=== PATIENT | male | born 1955 | race Caucasian/White ===

== ENCOUNTER → 2019-07-23 08:08 | Outpatient (CLI) | payer MEDICARE ==
[~2019-07-23 08:08] MED LIST: AMIODARONE HCL200 MG PO; ASPIRIN EC81 M1 PO; BACLOFEN10 MG PO; CALCIUM 500 +1 EAC3 PO; CARTIA XT240 MG PO; COLACE100 MG PO; LISINOPRIL5 MG PO; LOPRESSOR25 MG PO; METAMUCIL PACKE1 PKT PO; MULTI-DAY VITAM1 TAB PO; PERCOCET 5-3251 TAB PO; Senokot-S Tablet PO; VOLTAREN75 MG PO; XELJANZ5 MG PO; ZOCOR40 MG PO
[2019-08-14 13:59] VITALS: BMI 49.9
== END | disposition home or self-care (01) ==
LOC: D.HCCARDIO 08:08
PROVIDERS: ATTEND Internal Medicine Cardiovascular Disease
DX: R06.02 Shortness of breath (principal)

== ENCOUNTER 2019-08-01 06:03 | Outpatient (CLI) | payer MEDICARE ==
[~2019-08-01] VITALS: Ht 175.3 cm; Wt 154.5 kg
--- NOTE | ~2019-08-01 | HEMODYNAMI ---
PATIENT:AUSTIN ALFONSO MEDICAL RECORD: [id number] : 57 LOCATION:[facility] ADMISSION DATE: 08/01/19 Generatedon:08/01/20198:37 Patient name: AUSTIN ALFONSO Patient #: [id number] SSN: [id number] : 1955 Date of study: 08/01/2019 Page: Of Hemodynamic Procedure Report Patient Data Patient Demographics Procedure consent was obtained First Name: AUSTIN Gender: Male Last Name: NATY : 1955 Patient #: [id number] Age: 63 year(s) Race: SSN: [id number] Additional ID: [id number] Contact details [address]: [address] [place] [address] State: [place] City: [place] Zip code: [address] Past Medical History Performed procedures and imaging results Date Procedure Procedure Results Comments Stress testing with Positive SPECT MPI Allergies: No known allergies Admission Admission Data Admission Date: 08/01/2019 Admission Time: 6:03 Arrival Date: 08/01/2019 Arrival Time: 8:00 Admit Source: Other Insurance Payor: Medicare [facility] #: [id number] Height (in.): 68.9 BSA: 2.59 (m2) Height (cm.): 175 BMI: 50.61 (kg/m2) Weight (lbs.): 341.72 Weight (kg.): 155 Lab Results Lab Result Date: 08/01/2019 Lab Result Time: 0:00 Biochemistry Name Units Result Min Max BUN mg/dl 22 --(----)-* 7 18 Creatinine mg/dl 1 --(--*-)-- 0.6 1.3 eGFR ml/min 79.86321 *-(----)-- 90 120 NONAFRICAN CBC Name Units Result Min Max Hemoglobin g/dl 15.2 --(-*--)-- 13.5 17.5 Procedure Procedure Types Cath Procedure Diagnostic Procedure C LHC w/Coronaries Sedation Charges Moderate Sedation up to 15 minutes Procedure Description Procedure Date Procedure Date: 08/01/2019 Procedure Start Time: 8:22 Procedure End Time: 8:36 Procedure Staff Name Function Brandon Rosenberg MD Performing Physician Belinda Valencia RN Nurse Qiana Guerin RT Monitor Juany Sutherland RT Scrub Procedure Data Cath Procedure Fluoroscopy Diagnostic fluoroscopy Total fluoroscopy Time: 2.1 time: 2.1 min min Diagnostic fluoroscopy Total fluoroscopy dose: dose: 1326 mGy 1326 mGy Contrast Material Contrast Material Type Amount (ml) Isovue 300 90 Entry Location Entry Primary Successful Side Size Upsize Upsize Entry Closure Muñiz ccessful Closure Location (Fr) 1 (Fr) 2 (Fr) Remarks Device Remarks Radial Right 6 Fr Mechanical artery Short Compression Estimated blood loss: 10 ml Diagnostic catheters Device Type Used For End Catheter Placement DIAGNOSTIC Jaydon 110cm Procedure 5Fr catheter ([id number]) Procedure Complications No complications Procedure Medications Medication Administration Route Dosage 0.9% NaCl I.V. 100 ml/hr Oxygen etCO2 Nasal cannula 2 l/min Heparin Flush Bag added to field 2 bags (1000units/500ml NS) Radial Cocktail added to field 1 syringe (Verapamil 2mg/Nitro 400mcg/Heparin 1500units) Zofran I.V. 4 mg Versed I.V. 2 mg Fentanyl I.V. 50 mcg Versed I.V. 1 mg Fentanyl I.V. 50 mcg Hemodynamics Rest BSA: 2.59 (m2) HGB: 15.2 (g/dl) O2 Consumption: Estimated: 301.18 (ml/min) O2 Co nsumption indexed: Estimated:116.29 (ml/min/m) Heart Rate: 68 (bpm) Pressure Samples Time Site Value (mmHg) Purpose Heart Use Rate(bpm) 8:25 LV 148/-4,21 Snapshot 77 8:25 AO 111/70(83) Pullback 74 8:25 LV 128/-5,11 Pullback 74 Gradients Valve Time Site 1 Site 2 Mean SEP/DFP Peak To Heart Use (mmHg) (sec/min) Peak Rate (mmHg) (bpm) Aortic 8:25 LV AO 17 6 17 74 128/-5,11 111/70(83) Calculations Valve P-P Mean Valve Index Valve Source Name Gradient Area Flow (cm2) Aortic 17 17 17 17 Snapshots Pre Cath Intra NCS Post Cath Vital Signs Time Heart Resp SPO2 etCO2 NIBP (mmHg) Rhythm Pain Sedation Rate (ipm) (%) (mmHg) Status Level (bpm) 7:52:34 56 15 98 29.3 148/79(99) SB 0 (11) 10(A) , No pain 7:57:07 67 13 96 29 158/74(103) NSR 0 (11) 10(A) , No pain 8:01:35 72 13 97 28.6 137/74(110) NSR 0 (11) 10(A) , No pain 8:05:59 64 11 96 23.3 139/74(100) NSR 0 (11) 10(A) , No pain 8:10:25 64 12 96 28.6 136/78(115) NSR 0 (11) 10(A) , No pain 8:14:50 64 15 98 24.8 143/83(104) NSR 0 (11) 10(A) , No pain 8:19:10 74 11 98 21.1 138/77(105) NSR 0 (11) 10(A) , No pain 8:23:28 66 10 97 27.1 136/81(115) NSR 0 (11) 10(A) , No pain 8:27:56 73 10 98 38.4 127/69(100) NSR 0 (11) 9(A) , No pain 8:32:12 70 11 98 36.9 131/80(109) NSR 0 (11) 10(A) , No pain Medications Time Medication Route Dose Verified Delivered Reason Notes Eff ectiveness by by 7:52:10 0.9% NaCl I.V. 100 Brandon Belinda used for ml/hr Chet Valencia chief knowledge officer 7:52:17 Oxygen etCO2 2 l/min Brandon Belinda used for Nasal Chet Valencia procedure cannula RN 7:52:32 Heparin Flush added 2 bags Brandon Brandon used for Bag to Chet Rosenberg MD procedure (1000units/500ml field NS) 7:52:37 Radial Cocktail added 1 Brandon Brandon used for (Verapamil to syringe Chet Rosenberg MD procedure 2mg/Nitro field 400mcg/Heparin 1500units) 7:52:47 Zofran I.V. 4 mg Brandon Belinda for Chet Valencia nausea RN 8:16:32 Versed I.V. 2 mg Brandon Belinda for Chet Valencia sedation RN 8:16:37 Fentanyl I.V. 50 mcg Brandon Belinda for Chet Valencia sedation RN 8:23:11 Versed I.V. 1 mg Brandon Belinda for Chet Valencia sedation RN 8:23:15 Fentanyl I.V. 50 mcg Brandon Belinda for Chet Valencia sedation exercise physiologist Log Time Note 7:06:38 Informed consent obtained and on chart 7:10:28 Patient Weight : 341.72 lbs 7:10:34 Arrival Date: 08/01/2019 8:00:00 AM 7:10:41 Insurance Payor : Medicare 7:10:53 Patient Height : 68.9 inches 7:11:03 Diagnostic Cath Status : Elective 7:11:04 PCI Cath Status : Elective 7:12:18 Procedure Status Elective Heart Cath (OP). 7:12:19 Time tracking: Regular hours (M-F 7:00 - 5:00) 7:12:24 Plan of Care:Hemodynamics will remain stable., Cardiac rhythm will remain stable., Comfort level will be maintained., Respiratory function will remain adequate., Patient/ family verbilizes understanding of procedure., Procedure tolerated without complication., Recovers from procedure without complications.. 7:12:35 H&P Date Dictated: 07/09/2019 Within 30 days and on chart., H&P Addendum completed by physician on day of procedure. (MUST COMPLETE FOR ALL OUTPATIENTS). 7:12:42 Patient allergic to No known allergies 7:25:53 Admit Source: Other 7:30:25 Lab Result : Creatinine 1 mg/dl 7:30:25 Lab Result : BUN 22 mg/dl 7:30:25 Lab Result : eGFR NONAFRICAN 79.33634 ml/min 7:30:25 Lab Result : Hemoglobin 15.2 g/dl 7:34:52 Risk of Mortality: 0.1 7:34:57 Risk of blood transfusion: 0.3 7:35:02 Risk of RAMON: 0.4 7:35:20 2) 60-89 Mildly reduced kidney function, and other findings (as for stage 1) point to kidney disease. 7:35:57 Maximum allowable contrast dose (3.7 X eGFR X 0.75)222 ml. 7:47:35 Patient received from Pre/Post Procedure Room to CCL 2 Alert and oriented. Tansferred to table in Supine position. 7:47:37 Warm blankets applied, and judi hugger turned on for patient comfort. 7:47:37 Correct patient and procedure confirmed by team. 7:47:38 ECG and BP/O2 sat monitors applied to patient. 7:47:40 Pre-procedure instructions explained to patient. 7:47:40 Pre-op teaching completed and patient verbalized understanding. 7:47:41 Family in patients room. 7:47:43 Patient NPO since Midnight. 7:47:48 Is the patient allergic to Iodine/contrast media? No. 7:47:53 Is patient on blood thinner?No 7:47:56 Patient diabetic? No. 7:48:05 Full Disclosure recording started 7:48:12 Previous problem with sedation/anesthesia? Yes NAUSEA 7:48:14 Snore? Yes 7:48:15 Sleep apnea? Yes 7:48:16 Deviated septum? No 7:48:17 Opens mouth fully? Yes 7:48:18 Sticks out tongue? Yes 7:48:20 Airway obstruction? No ? 7:48:24 Dentures? No ? 7:48:27 Pre procedure: right dorsailis pedis pulse 1+ Palpable, but thready & weak; easily obliterated 7:49:33 Patient pain scale 0/10 ?. 7:49:36 IV patent on arrival in left hand with 0.9% NaCl at KVO. 7:49:40 Lab results completed and on chart. 7:49:43 Right Radial & Right Groin area was prepped with chlora-prep and draped in sterile fashion 7:49:44 Alarms reviewed by R. N. 7:49:45 Sharps counted by scrub and verified by R.N. 7:49:49 Use device set Radial Dx or PCI 7:49:50 ACIST Syringe (92258) opened to sterile field. 7:49:51 Medline Cath Pack ([id number]) opened to sterile field. 7:49:52 Bag Decanter (2002) opened to sterile field. 7:49:52 ACIST Hand Control (81766) opened to sterile field. 7:49:53 ACIST Manifold (39623) opened to sterile field. 7:49:53 Tegaderm 4 x 4 (1626W) opened to sterile field. 7:49:54 MBrace Wrist Support ([id number]) opened to sterile field. 7:49:55 NEEDLE Cook 21G 4cm Radial (X53378) opened to sterile field. 7:49:57 EMERALD Guide Wire (035-516) opened to sterile field. 7:49:58 SHEATH 6FR RAIN ([id number]) opened to sterile field. 7:51:15 Rhythm: sinus rhythm 7:51:20 Vital chart was started 7:52:10 0.9% NaCl 100 ml/hr I.V. was administered by Belinda Valencia RN; used for procedure; Verbal order read back and verified. 7:52:17 Oxygen 2 l/min etCO2 Nasal cannula was administered by Belinda Valencia RN; used for procedure; Verbal order read back and verified. 7:52:32 Heparin Flush Bag (1000units/500ml NS) 2 bags added to field was administered by Brandon Rosenberg MD; used for procedure; Verbal order read back and verified. 7:52:37 Radial Cocktail (Verapamil 2mg/Nitro 400mcg/Heparin 1500units) 1 syringe added to field was administered by Brandon Rosenberg MD; used for procedure; Verbal order read back and verified. 7:52:47 Zofran 4 mg I.V. was administered by Belinda Valencia RN; for nausea; Verbal order read back and verified. 8:04:03 Baseline sample Acquired. 8:11:33 Zero performed for pressure channel P1 8:11:40 Zero performed for pressure channel P1 8:11:44 Zero performed for pressure channel P1 8:15:53 Physician arrived 8:15:54 --------ALL STOP TIME OUT------ 8:15:54 Final Timeout: patient, procedure, and site verified with staff and physician. All members of the team are in agreement. 8:15:58 Right Radial & Right Groin site verified by team. 8:16:03 Fire Safety Assessment: A--An alcohol-based skin anteseptic being used preoperatively., C--Open oxygen or nitrous oxide is being used., D--An ESU, laser, or fiber-optic light is being used. 8:16:10 Physical assessment completed. ASA score P 3 - A patient with severe systemic disease as per Brandon Rosenberg MD. 8:16:15 Sedation plan: IV Moderate Sedation Medication:Versed, Fentanyl 8:16:32 Versed 2 mg I.V. was administered by Belinda Valencia RN; for sedation; Verbal order read back and verified. 8:16:37 Fentanyl 50 mcg I.V. was administered by Belinda Valencia RN; for sedation; Verbal order read back and verified. 8:21:54 Procedure started. 8:22:28 Local anesthetic to right radial artery with Lidocaine 2% by Brandon Rosenberg MD.INITIAL ACCESS ONLY 8:23:11 Versed 1 mg I.V. was administered by Belinda Valencia RN; for sedation; Verbal order read back and verified. 8:23:15 Fentanyl 50 mcg I.V. was administered by Belinda Valencia RN; for sedation; Verbal order read back and verified. 8:23:15 A 6 Fr Short sheath was inserted into the Right Radial artery 8:23:37 J wire advanced. 8:24:16 A DIAGNOSTIC Jaydon 110cm 5Fr catheter ([id number]) was advanced over the wire and used for Procedure. 8:24:42 LV angiography performed. 8:25:35 EF : 55 % 8:25:57 LCA angiography performed. 8:31:37 RCA angiography performed. 8:31:39 ACCDominant side:Co-Dominant 8:31:52 Catheter removed. 8:32:24 Sheath removed intact; hemostasis achieved with Mechanical Compression to the Right Radial artery. 8:33:27 Procedure ended.(Physican Out) 8:33:41 Fluoroscopy time 02.10 minutes. 8:33:47 Fluoroscopy dose: 1326 mGy 8:33:47 Flurop Dose total: 1326 8:33:53 Dose Area Product 39504 mGy/cm. 8:34:06 Contrast amount:Isovue 300 90ml. 8:34:09 Maximum allowable dose exceeded? No. 8:34:13 Lecompte band inflated with 10cc of air. 8:34:14 Insertion/operative site no bleeding no hematoma. 8:34:30 Post-procedure physical assessment completed. ASA score P 4 - A patient with severe systemic disease that is a constant threat to life as per Brandon Rosenberg MD. 8:34:50 Post procedure rhythm: sinus rhythm 8:34:53 Estimated blood loss: 10 ml 8:34:55 Post procedure instruction explained to patient.Patient verbalizes understanding. 8:35:04 Procedure type changed to Cath procedure, Diagnostic procedure, LHC, C w/Coronaries, Sedation Charges, Moderate Sedation up to 15 minutes 8:35:08 Procedure and supply charges have been captured, reviewed, submitted and are correct. 8:35:29 Procedure Complication : No complications 8:35:32 Vital chart was stopped 8:35:35 [facility] Findings: MVD- CABG consult 8:35:39 Operative report dictated upon procedure completion. 8:35:39 See physician's report for complete and final results. 8:35:42 Report given to Pre/Post Procedure Room. 8:35:57 Patient transfered to Pre/Post Procedure Room with Stretcher. 8:36:00 Procedure ended. 8:36:00 Full Disclosure recording stopped 8:36:05 End room use (Document Last) 8:36:31 End room use (Document Last) Device Usage Item Name Manufacture Quantity Catalog Hospital Part Current Minima l Lot# / Number Charge Number Stock Stock Serial# Code ACIST Acist 1 73638 104429 922739 950853 20 Syringe Medical (46553) Systems Inc Medline Medline 1 [id number] 480061 56463 925105 5 Cath Pack ([id number]) Bag Microtek 1 2001S 732533 28059 958351 5 Decanter Medical Inc. () ACIST Hand Acist 1 03863 402179 858717 808044 5 Control Medical (32966) Systems Inc ACIST Acist 1 12743 817511 376386 572352 5 Manifold Medical (03131) Systems Inc Tegaderm 4 3M 1 1626W 343183 084938 810428 5 x 4 (1626W) MBrace Advanced 1 140-0250-00 537464 97583 974025 5 Wrist Vascular Support Dynamics ([id number]) NEEDLE Cook Cook Medical 1 B19074 130059 299998 740337 5 21G 4cm Radial (A07109) EMERALD Cardinal 1 502-455 772009 652808 884098 5 Guide Wire [facility] (000-842) SHEATH 6FR Cardinal 1 [id number] 950040 3236158 708175 5 [facility] (7243249) DIAGNOSTIC Terumo 1 405023 706006 626360 739007 5 Jaydon 110cm 5Fr catheter (887415) Signature Audit Justin Stage Time Signature Unsigned Intra-Procedure 08/01/2019 Juany Sutherland 8:36:31 AM RT(R) Intra-Procedure 08/01/2019 Belinda Valencia 8:37:08 AM RN Intra-Procedure 08/01/2019 Brandon Rosenberg MD 8:37:45 AM Signatures Performing Physician : Signature : Brandon Rosenberg MD Date : Time : Nurse : Belinda Valencia RN Signature : Date : Time : Monitor : Qiana Guerin RT Signature : Date : Time : [address] [address]
[2019-08-01] MEDS ORDERED: CALCIUM 500 +1 EAC3 PO (06:31)
[2019-08-01] MEDS ORDERED: MULTI-DAY VITAM1 TAB PO (06:31)
[2019-08-01] MEDS ORDERED: ZOCOR40 MG PO (06:31)
[2019-08-01] MEDS ORDERED: VOLTAREN75 MG PO (06:32)
[2019-08-01] MEDS ORDERED: XELJANZ5 MG PO (06:32)
[2019-08-01] MEDS ORDERED: BACLOFEN10 MG PO (06:32)
[2019-08-01] MEDS ORDERED: METAMUCIL PACKE1 PKT PO (06:33)
[2019-08-01] MEDS ORDERED: CARTIA XT240 MG PO (06:33)
[2019-08-01 06:48] VITALS: BP 130/68; Ht 175.3 cm; Wt 154.5 kg
[2019-08-01 07:13] LABS: ALT (SGPT) 41 U/L (10-68); CALC OSMOLALITY 281 mosm/kg (275-300); CARBON DIOXIDE 26.6 mmol/L (21.0-32.0); CHLORIDE - SERUM 105 mmol/L (98-107); CHOL - HDL RATIO 5.5 ratio (2.3-4.9); CHOLESTEROL, TOTAL 187 mg/dL (0-200); GLUCOSE 110 mg/dL (74-106); HDL CHOLESTEROL 34 mg/dL (32-96); LDL CHOLESTEROL 133 mg/dL (0-100); LDL-HDL RATIO 3.9 ratio (1.5-3.5); POTASSIUM - SERUM 4.2 mmol/L (3.5-5.1); SODIUM 139 mmol/L (136-145); TRIGLYCERIDE 104 mg/dL (30-200); UREA NITROGEN 22 mg/dL (7-18); eGFR NON AFRICAN AMERICAN 80 mL/min (90-120)
[2019-08-01 07:25] LABS: BASOPHILS 0.3 % (0-2); EOSINOPHILS 0.6 % (0-7); HEMATOCRIT 45.6 % (42.0-54.0); HEMOGLOBIN 15.2 g/dL (13.5-17.5); IMMATURE GRANULOCYTES 0.2 % (0-5); LYMPHOCYTES 17.3 % (15-50); MCH 32.2 pg (26.0-34.0); MCHC 33.3 g/dL (31.0-37.0); MCV 96.6 fL (80.0-100.0); MEAN PLATELET VOLUME 10.6 fL (7.4-10.4); NEUTROPHILS 74.6 % (40-80); PLATELET COUNT 193 10x3/uL (130-400); RBC 4.72 10x6/uL (4.20-6.10); RDW 13.4 % (11.5-14.5); WBC 6.6 10x3/uL (4.8-10.8)
--- NOTE | 2019-08-01 08:45 | NUR ---
PATIENT ARRIVED TO ROOM 6, PLACED ON CM. VSS. RIGHT TR BAND IN PLACE, NO S/S OF BLEEDING OR HEMATOMA.
--- NOTE | 2019-08-01 09:00 | NUR ---
PATIENT AWAKE, SITTING UP. DRINKING WATER, NO N/V. BROTHER AT BEDSIDE. RIGHT TR BAND IN PLACE, NO S/S OF BLEEDING OR HEMATOMA. NO C/O PAIN, NUMBNESS, OR TINGLING.
--- NOTE | 2019-08-01 09:30 | NUR ---
PATIENT AWAKE, SITTING UP IN BED, BROTHER AT BEDSIDE. PATIENT EATING TURKEY SANDWICH AND DRINKING WATER. VSS ON ROOM AIR. RIGHT TR BAND IN PLACE, NO S/S OF BLEEDING OR HEMATOMA. NO C/O PAIN, NUMBNESS, OR TINGLING.
--- NOTE | 2019-08-01 10:00 | NUR ---
PATIENT AWAKE, TOLERATING PO FLUIDS AND FOOD, NO N/V. VSS ON ROOM AIR. 3CC OF AIR REMOVED FROM TR BAND, NO S/S OF BLEEDING OR HEMATOMA. NO C/O PAIN, NUMBNESS, OR TINGLING.
--- NOTE | 2019-08-01 10:30 | NUR ---
REMAINING AIR REMOVED FROM TR BAND, NO S/S OF BLEEDING OR HEMATOMA. DRESSING APPLIED AT RIGHT RADIAL SITE IS CDI. VSS ON ROOM AIR. PATIENT VOIDED WITHOUT DIFFICULTY. WRITTEN AND VERBAL DISCHARGE INSTRUCTIONS GIVEN TO PATIENT AND FAMILY, PATIENT VOICES UNDERSTANDING.
--- NOTE | 2019-08-01 10:45 | NUR ---
PATIENT DISCONNECTED FROM TO GET DRESSED. IV REMOVED.
--- NOTE | 2019-08-01 11:00 | NUR ---
RIGHT RADIAL SITE IS CDI, NO S/S OF BLEEDING OR HEMATOMA. PATIENT TRANSPORTED VIA WHEELCHAIR TO CAR WITH FAMILY DRIVING, ALL BELONGINGS WITH PATIENT.
== END 2019-08-01 11:00 ==
LOC: D.CATH 06:03
PROVIDERS: ATTEND Internal Medicine Cardiovascular Disease
DX: I25.119 Atherosclerotic heart disease of native coronary artery with unspecified angina pectoris (principal); R94.30 Abnormal result of cardiovascular function study, unspecified

== ENCOUNTER 2019-08-07 12:19 | Inpatient (IN) | payer MEDICARE, OTHER ==
[~2019-08-07] VITALS: Ht 175.3 cm; Wt 153.8 kg
[~2019-08-07 12:19] MED LIST changes: -AMIODARONE HCL200 MG PO; -ASPIRIN EC81 M1 PO; -COLACE100 MG PO; -LISINOPRIL5 MG PO; -LOPRESSOR25 MG PO; -PERCOCET 5-3251 TAB PO; -Senokot-S Tablet PO
[2019-08-07 14:53] LABS: BASOPHILS 0.3 % (0-2); EOSINOPHILS 0.4 % (0-7); HEMATOCRIT 45.3 % (42.0-54.0); HEMOGLOBIN 15.1 g/dL (13.5-17.5); IMMATURE GRANULOCYTES 0.1 % (0-5); LYMPHOCYTES 21.9 % (15-50); MCH 32.1 pg (26.0-34.0); MCHC 33.3 g/dL (31.0-37.0); MCV 96.4 fL (80.0-100.0); MEAN PLATELET VOLUME 10.5 fL (7.4-10.4); MONOCYTES 6.1 % (2-11); NEUTROPHILS 71.2 % (40-80); PLATELET COUNT 192 10x3/uL (130-400); RDW 13.1 % (11.5-14.5); WBC 7.2 10x3/uL (4.8-10.8)
[2019-08-07 15:02] LABS: APTT 26.1 SECONDS (22.8-39.4); INR 1.03 (0.85-1.17)
[2019-08-07 15:27] LABS: ALBUMIN 3.8 g/dL (3.4-5.0); ANION GAP 10.7 mmol/L (8-16); BILIRUBIN - TOTAL 0.22 mg/dL (0.2-1.3); CALCIUM 8.8 mg/dL (8.5-10.1); CARBON DIOXIDE 28.4 mmol/L (21.0-32.0); CREATININE - SERUM 1.1 mg/dL (0.6-1.3); PHOSPHOROUS 3.3 mg/dL (2.5-4.9); POTASSIUM - SERUM 4.1 mmol/L (3.5-5.1); PROTEIN - SERUM 7.7 g/dL (6.4-8.2); T4 THYROXIN - FREE 0.81 ng/dL (0.76-1.46); THYROID STIMULATING HORMONE 4.58 uIU/mL (0.36-3.74); URIC ACID 7.4 mg/dL (2.6-7.2)
[2019-08-07 15:45] LABS: APPEARANCE CLEAR (CLEAR); BILIRUBIN NEGATIVE (NEGATIVE); COLOR YELLOW (YELLOW); GLUCOSE NEGATIVE (NEGATIVE); KETONE NEGATIVE (NEGATIVE); NITRITE NEGATIVE (NEGATIVE); PROTEIN NEGATIVE (NEGATIVE); UROBILINOGEN NORMAL (NORMAL)
[2019-08-12] VITALS (28 sets, daily range): BP systolic 98–174; BP diastolic 53–93; BMI 49.4
[2019-08-12 12:58] LABS: INR 3.04 (0.85-1.17); PROTIME 30.7 SECONDS (11.6-15.0)
--- NOTE | 2019-08-12 14:30 | NUR ---
PT ARRIVED TO ROOM VIA BED FROM O.R. PLACED ON BEDSIDE MONITORING. PT SEDATED AND INTUBATED. 8.0F ETT, 24 AT THE LIP. SECURED WITH TUBE TAMER. PT HAS RIGHT JUGULAR CENTRAL LINE WITH MANIFOLD IN USE FOR MEDICATION LINES. ALSO HAS CVP LINE. RIGHT RADIAL ART LINE NOTED. STABILIZER IN USE. MIDSTERNAL INCISION WITH DRESSING C,D,I. SUBSTERNAL DRESSING COVERING CHEST TUBE X2, LEFT MIKEY DRAIN (COMPRESSED), TPM WIRE X1 COILED. RIGHT LEG HARVEST SITES COVERED WITH GAUZE AND WRAPPED IN KOBAN. LEFT LEG HAS RITU HOSE AND SCD IN PLACE. HYPOACTIVE BOWEL SOUNDS, PALPABLE PULSES, LUNGS CLEAR WITH DIMINISHED BASES. PT IS IN NORMAL SINUS RHYTHM AT THIS TIME. NO ECTOPY NOTED. PT CURRENTLY ONLY ON PLASMALYTE INFUSION AND 100ML/HR. CARLISLE CATHETER WITH CONCENTRATED YELLOW URINE, STAT-LOCK IN PLACE. PLEUREVAC ON 20CM SUCTION, NO AIRLEAK NOTED. PT RESTRAINED TO PROTECT FROM RISK OF EXTUBATION.
--- NOTE | 2019-08-12 14:45 | NUR ---
HEPARIN FOR PRESSURE BAG REMOVED AND REPLACED WITH SALINE DUT TO PT LOW PLATELET COUNTS.
[2019-08-12 15:25] LABS: INR 1.32 (0.85-1.17); PROTIME 15.8 SECONDS (11.6-15.0)
--- NOTE | 2019-08-12 17:45 | NUR ---
PT RESTING QUIETLY AT THIS TIME. HAS BEEN C-PAP AND TOLERATING WELL. WEANING WITH ANTICIPATION OF EXTUBATION PRIOR TO END OF SHIFT.
--- NOTE | 2019-08-12 18:30 | NUR ---
ABG OBTAINED. NIF AND VITAL HAVE BEEN PERFORMED. PT APPROPRIATE FOR EXTUBATION.
--- NOTE | 2019-08-12 19:00 | NUR ---
PT ASSESSMENT COMPLETED AT THIS TIME, PT AWAKE AND ALERT TALKING, NO CHANGES FROM NURSE REPORT, VSS, WILL MONITOR FOR CHANGES
--- NOTE | 2019-08-12 21:00 | NUR ---
PT AWAKE TALKING WITH FAMILY, VSS, NO DISTRESS NOTED, WILL MONITOR FOR CHANGES
--- NOTE | 2019-08-12 23:00 | NUR ---
PT REASSESSMENT COMPLETED AT THIS TIME, NO CHANGES NOTED. PT ADVISED THAT HE RESTING AND FEELING MUCH BETTER, VSS, WILL MONITOR FOR CHANGES
[2019-08-13] VITALS (35 sets, daily range): BP systolic 112–1258; BP diastolic 66–99
--- NOTE | 2019-08-13 01:03 | NUR ---
PT ASSISTED UP ON THE SIDE OF THE BED, VSS, PT WAS ASSISTED BACK TO BED, PT ADVISED THAT HE WAS MUCH MORE COMFORTABLE NOW.
--- NOTE | 2019-08-13 03:00 | NUR ---
PT REASSESSMENT COMPLETED AT THIS TIME, NO CHANGES NOTED, VSS, WILL CONT TO MONITOR
--- NOTE | 2019-08-13 05:40 | NUR ---
PT GIVEN HCG BATH, SUBSTERNAL DRESSING CHANGED, PT WAS ASSISTED UP TO CHAIR AND COMPLETE LINEN CHANGED, PT BING WELL
[2019-08-13 06:31] LABS: HEMATOCRIT 44.7 % (42.0-54.0); HEMOGLOBIN 14.4 g/dL (13.5-17.5); MCH 31.8 pg (26.0-34.0); MCHC 32.2 g/dL (31.0-37.0); MCV 98.7 fL (80.0-100.0); RBC 4.53 10x6/uL (4.20-6.10); RDW 13.6 % (11.5-14.5); WBC 12.9 10x3/uL (4.8-10.8)
[2019-08-13 06:50] LABS: ANION GAP 15.1 mmol/L (8-16); BILIRUBIN - TOTAL 0.39 mg/dL (0.2-1.3); CALCIUM 7.4 mg/dL (8.5-10.1); CARBON DIOXIDE 21.5 mmol/L (21.0-32.0); CREATININE - SERUM 1.1 mg/dL (0.6-1.3); POTASSIUM - SERUM 4.6 mmol/L (3.5-5.1); PROTEIN - SERUM 6.2 g/dL (6.4-8.2)
--- NOTE | 2019-08-13 07:00 | NUR ---
RECEIVED BEDSIDE REPORT ON PATIENT AND ASSUMED CARE. BP - 158/99, NTG GTT INITIATED AT 10 MCG/MIN. PATIENT ALERT AND ORIENTED, C/O PAIN TO CHEST UPON TAKING DEEP BREATH, RATES 8/10. GIVEN 2 MG MORPHINE IVP WITH NS FLUSH FOR PAIN. PATIENT SITTING UP IN BEDSIDE CHAIR, VSS. BBS - CLEAR BUT DIMINISHED IN THE BASES, SPO2 - 92% ON 4 LPM VIA NC, CM - ST RATE OF 104, CARLISLE CATH WITH MONO UOP NOTED AND ANTERIOR POSTERIOR CHEST TUBES TO 20 CM H2O SUCTION, WITH NO AIR LEAK DETECTED AND SANGENOUS DRAINAGE NOTED. MIKEY DRAIN IN PLACE, BULB COMPRESSED AND TPM WIRES NOTED. DRESSING TO STERNUM CLEAN, DRY AND INTACT. HEAD TO TOE ASSESSMENT COMLETED. ART LINE TO RIGHT WRIST AND CVP TO RIGHT IJ ZEROED AND LEVELED.
--- NOTE | 2019-08-13 07:30 | NUR ---
DR. FU AT ROOM UPDATED AND ORDERS LOPRESSOR 25 MG, ONE NOW AND THEN Q12 HOURS. ALSO OKAY TO DC PLASMOLYTE GTT, CARLISLE CATH AND ART LINE.
--- NOTE | 2019-08-13 07:41 | OP ---
PATIENT NAME: AUSTIN ALFONSO MEDICAL RECORD: [id number] :57 LOCATION:[facility] ADMISSION DATE:08/12/19 SURGEON: KRISHNA FU MD DATE OF OPERATION: 08/12/2019 SURGEON: Krishna Fu MD ALMOND HULLER: Rivera Timmons OPERATION PERFORMED: Coronary artery bypass graft times 4 (left internal mammary artery to LAD, reverse saphenous vein graft from aorta to ramus intermedius, aorta to first obtuse marginal, aorta to posterior descending artery), endoscopic saphenous vein harvest. PREOPERATIVE DIAGNOSES: Coronary artery disease and morbid obesity. POSTOPERATIVE DIAGNOSES: Coronary artery disease and morbid obesity. ANESTHESIA: General endotracheal anesthesia. ESTIMATED BLOOD LOSS: Total cardiopulmonary bypass with Cell Saver retransfusion. COMPLICATIONS: None. SPECIMENS: None. CONDITION: Stable. DISPOSITION: ICU. OPERATIVE FINDINGS: 1. Large caliber greater saphenous vein and thin walled below the knee. The thigh portion of the tunnel would not stay expanded after the vessel was dissected out before the side branches were divided so intermittent bridging incisions were made in the right thigh. 2. Good quality left internal mammary artery. The LAD was a 2.0-mm vessel. 3. Ramus intermedius 2.5 mm vessel with proximal plaque. The distal vessel was intramyocardial. 4. First obtuse marginal 1.5 mm. The more distal obtuse marginal branch, posterolateral circumflex branch was smaller. 5. Posterior descending artery 1.5 mm. 6. The diagonal was a small and significant mismatch for the greater saphenous vein was not bypassed. 7. Good contractility, moderate left ventricular hypertrophy and no significant stenosis or regurgitation by transesophageal echocardiography. OPERATIVE INDICATION: Coronary artery disease. OPERATIVE PROCEDURE IN DETAIL: The patient was brought to the operating suite. General anesthesia was obtained. The patient was prepped and draped. The greater saphenous vein was harvested from right lower extremity first with endoscopic technique. Side branches were divided with electrocautery, then with several bridging open incisions, side branches were clipped. Vessel ligated proximally and distally, removed. Side branches were tied. Leakage sites were OPERATIVE REPORT [id number] AUSTIN ALFONSO oversewn as were thin sites. Leg was later closed in 2 layers. Median sternotomy incision was made. Subcutaneous tissue was divided by electrocautery. Sternum was divided with a saw. Left hemisternum was elevated. Left pleural cavity was entered. Left internal mammary artery was taken down as a pedicle graft. Sternal retractor was placed. Pericardium was opened. Heparin was given. The aorta was cannulated. Dual stage venous cannula was inserted. The internal mammary clipped distally and made ready for anastomosis. Activated clotting time was appropriately elevated and the patient was placed on cardiopulmonary bypass. Sites for distal anastomoses were selected. Antegrade cardioplegia needle was inserted. The patient was cooled. Crossclamp was placed. Cardioplegia was given antegrade and this was repeated at 15 to 20 minute intervals including down the completed vein grafts. Distal anastomoses were performed in standard technique. Proximal anastomosis with single cross-clamp technique. Aortic root de-aired by removing the cross clamp, tying the proximal anastomoses, venting the graft and restoring flow. Proximal and distal anastomotic sites were inspected for bleeding. Single 6-0 in the proximals. Patient resumed a spontaneous rhythm, fully rewarmed, weaned from cardiopulmonary bypass and was stable. The patient was decannulated. Aortic cannulation site was oversewn with a pledgeted Prolene suture. Protamine was given. The graft laid appropriately. Hemostasis was ensured. Thorough antibiotic irrigation was performed. Drains were placed in the mediastinum and left pleural cavity. Ventricular pacing wires were placed. Pericardial fat was loosely reapproximated in the midline. Left chest was evacuated and irrigated. The internal mammary harvest site was ensured to be hemostatic. Sternum was closed with wires and a single sternal plate. Fascia was closed. Subcutaneous tissue was closed. Skin was closed. Dermabond was placed. The needle and sponge counts were reported correct. The patient was taken to the ICU in stable condition. TRANSINT:[id number] Voice Confirmation ID: [id number] DOCUMENT ID: [id number] KRISHNA FU MD at 0741 CC: ISHA MCINTOSH M.D. and EVERARDO TEJEDA MD [id number] DICTATION DATE: 08/12/191409 PLATINUM SMITH: 08/13/19 0005 ADM IN [place] [id number] [place] [address]
--- NOTE | 2019-08-13 09:11 | NUR ---
ART LINE D/C'D PER ORDER. DIRECT PRESSURE HELD FOR APPROXIMATELY 5 MINUTES, NO BLEEDING OR HEMATOMA, DRESSED WITH 2X2 AND TEGADERM DRESSING. VSS.
--- NOTE | 2019-08-13 10:11 | NUR ---
FOELY CATH DISCONTINUED, 325 CC MONO UOP NOTED.
--- NOTE | 2019-08-13 10:51 | NUR ---
REASSESSMENT COMPLETED. VSS.
--- NOTE | 2019-08-13 12:50 | NUR ---
PATIENT ASSISTED BACK TO BED, TO PREPARE FOR CHEST TUBE REMOVAL BY DR. FU. PRN PAIN MEDS GIVEN PER DEC.
--- NOTE | 2019-08-13 13:12 | NUR ---
DR. FU AT ROOM REMOVES ANTERIOR AND POSTERIOR CHEST TUBES. LEFT AC PERIPHERAL IV REMOVED ALSO. PATIENT TO REST IN BED.
--- NOTE | 2019-08-13 15:00 | NUR ---
REASSESSMENT COMPLETED. SEE FLOW SHEET. VSS. CALL LIGHT IN REACH. WILL CONT POC.
[2019-08-14] VITALS (25 sets, daily range): BP systolic 100–134; BP diastolic 48–79; Ht 175.3 cm; Wt 153.8 kg
--- NOTE | 2019-08-14 01:40 | NUR ---
PATIENT UP TO BATHROOM WITH MINIMAL ASSIST VOIDED APPROX 900 MONO URINE. PATIENT HAD CHG BATH AND TOLERATED WELL. PATIENT TO SIT UP IN CHIAR AT THIS TIME.
[2019-08-14 07:18] LABS: ANION GAP 12.5 mmol/L (8-16); BILIRUBIN - TOTAL 0.4 mg/dL (0.2-1.3); CARBON DIOXIDE 26.1 mmol/L (21.0-32.0); CREATININE - SERUM 1.3 mg/dL (0.6-1.3); POTASSIUM - SERUM 4.6 mmol/L (3.5-5.1); PROTEIN - SERUM 6.4 g/dL (6.4-8.2)
[2019-08-14 07:31] LABS: HEMATOCRIT 38.8 % (42.0-54.0); HEMOGLOBIN 12.2 g/dL (13.5-17.5); MCH 31.5 pg (26.0-34.0); MCHC 31.4 g/dL (31.0-37.0); MCV 100.3 fL (80.0-100.0); MEAN PLATELET VOLUME 10.7 fL (7.4-10.4); RBC 3.87 10x6/uL (4.20-6.10); RDW 13.7 % (11.5-14.5)
--- NOTE | 2019-08-14 09:17 | NUR ---
SITTING UP IN CHAIR. RIJ DRESSING CHANGED PER PROTOCOL. SUBSTERNAL DRESSING CHANGED PER ORDERS. PT TOLERATED WELL. WILL COTNINUE TO MONITOR.
--- NOTE | 2019-08-14 10:56 | NUR ---
CALL RECEIVED FROM YOJANA PT DAUGHTER. PASSCODE VERIFIED. BRIEF UPDATE GIVEN.
--- NOTE | 2019-08-14 14:08 | TEE ---
PATIENT:AUSTIN ALFONSO MEDICAL RECORD: [id number] LOCATION:[place] [address] AGE OF PATIENT: 63 ADMISSION DATE: 08/12/19 SEX: M REFERRING PHYSICIAN: INTERPRETING PHYSICIAN: NADIRA BECKWITH MD TRANSESOPHAGEAL ECHOCARDIOGRAM Date: 08/12/19 ASIA CHARGE Y INDICATIONS: CABG PREMEDICATIONS: PATIENT'S RESPONSE PROCEDURE DOPPLER MEASUREMENTS: LVIT LA 3.9 PA RA LVOT RVOT Asc. Ao AV Gradient Peak AV Mean AV Area MV Gradient Peak MV Mean MV Area INTERPRETATION: Doppler: 2-D: COLOR FLOW DOPPLER NORMAL SALINE STUDY: MISCELLANOUS: DIAGNOSIS: PLAN: Hand Launderer:Silva Rosenberg Adobe Flex Developer: Christiano JAMIL COMMENTS: DATE OF SERVICE: 08/12/2019 PROCEDURE: Transesophageal echo evaluation of valvular structures during bypass surgery. FINDINGS: 1. Left ventricular chamber size is within normal limits. Left ventricular systolic function is normal at 55% to 60%. 2. Left atrium, right atrium, and right ventricular chamber sizes are within TRANSESOPHAGEAL ECHOCARDIOGRAM REPORT [id number] AUSTIN ALFONSO normal limits. 3. Valvular structures have normal structure and motion. 4. Doppler interrogation reveals only mild mitral regurgitation, no other valvular insufficiency or stenosis. 5. No evidence of pericardial effusion or left ventricular thrombus. TRANSINT:[id number] Voice Confirmation ID: [id number] DOCUMENT ID: [id number] at 1408 CC: [id number] DICTATION DATE: 08/12/19 1800 COOL ROOFING INSTALLER: 08/13/19 0158 ADM IN [facility] [address] [place] [address]
--- NOTE | 2019-08-14 14:20 | NUR ---
AMBULATED 200FT WITH PHYSICAL THERAPY. AMBULATED ON 3L OF O2 VIA NC. REPORTED SHORTNESS OF BREATH AND HR INCREASED TO 120S. HR BACK DOWN TO 90S AFTER AMBULATION COMPLETED. NO FURTHER NEEDS AT THIS TIME. WILL CONTINUE TO MONITOR.
--- NOTE | 2019-08-14 18:18 | NUR ---
PT RESTING COMFORTABLY IN CHAIR. RATES PAIN 3/10 AFTER PAIN MED.
--- NOTE | 2019-08-14 20:25 | MORECARE ---
CASE MANAGEMENT DISCHARGE SUMMARY PATIENT: AUSTIN ALFONSO UNIT: [id number] ADM DATE: 08/12/19 AGE: 63 : 57 SEX: M ROOM/BED: [facility] AUTHOR: PANKAJ WOOD PHYSICIAN: REFERRING PHYSICIAN: KALPESH FU MD DATE OF SERVICE: 08/14/19 Discharge Plan Patient Name: AUSTIN ALFONSO [facility] [facility] 1955 Planned Disposition: Home Anticipated Discharge Date: Discharge Date: Expected LOS: Initial Reviewer: [email or web address] Initial Review Date: 08/14/2019 Generated: 08/14/19 9:24 pm Patient Name: AUSTIN ALFONSO Page [id number] at 2024 All edits/amendments must be made on the electronic document DICTATION DATE: 08/14/192023 FORGE SHOP MACHINE REPAIRER: SERENA 08/14/192023 RPT#: [id number] DC DATE: STATUS: ADM IN [facility] [address] [place] [address] END OF REPORT
--- NOTE | 2019-08-14 20:31 | MORECARE ---
CASE MANAGEMENT DISCHARGE SUMMARY PATIENT: AUSTIN ALFONSO UNIT: [id number] ADM DATE: 08/12/19 AGE: 63 : 57 SEX: M ROOM/BED: D.[facility] AUTHOR: NINA,DOC PHYSICIAN: REFERRING PHYSICIAN: KALPESH FU MD DATE OF SERVICE: 08/14/19 Discharge Plan Patient Name: AUSTIN ALFONSO Facility: [facility]:[place] : 1955 Planned Disposition: Home Anticipated Discharge Date: Discharge Date: Expected LOS: Initial Reviewer: [email or web address] Initial Review Date: 08/14/2019 Generated: 08/14/19 9:31 pm Comments DCP- Discharge Planning Updated by [email or web address]: Citlali Barbour on 08/14/19 7:[address] Patient Name: AUSTIN ALFONSO Admission Status: Urgent Accout number: [id number] Admission Date: 08-12-2019 : 1955 Admission Diagnosis: Attending: KALPESH FU Current LOS: 2 Anticipated DC Date: Planned Disposition: Home Primary Insurance: MEDICARE A & B Discharge Planning Comments: CM met with patient at bedside after explaining CM role and obtaining verbal consent. Patient lives at home alone where he is independent with his care and plans to return there upon discharge. Patient feels this would be a safe discharge. CM discussed availability / needs of home health and medical equipment. Patient denies any discharge needs at this time. Patient states he will have his family drive him home upon discharge. Patient may need walk test if requiring 02 @ discharge. CM will continue to follow and assist as needed with discharge planning / needs. Precision Assembler Bench: Citlali Barbour DCPIA - Discharge Planning Initial Assessment Updated by [email or web address]: Citlali Barbour on 08/14/19 8:28 pm * Is the patient Alert and Oriented? Yes * How many steps to enter\exit or inside your home? * PCP NIKHIL * Pharmacy [facility] * Preadmission Environment Home Alone * ADLs Independent * Other Equipment WALKING STICK * List name and contact numbers for known caregivers / representatives who currently or will assist patient after discharge: YOJANA HEATH - DAUGHTER- [phone] * Verbal permission to speak to the caregivers and representatives has been obtained from the patient. Yes * Community resources currently utilized None * Additional services required to return to the preadmission environment? No * Can the patient safely return to the preadmission environment? Yes * Has this patient been hospitalized within the prior 30 days at any hospital? No Last DP export: 08/14/19 7:25 p Patient Name: AUSTIN ALFONSO Page [id number] at 2030 All edits/amendments must be made on the electronic document DICTATION DATE: 08/14/192030 PARTS DATA WRITER: SERENA 08/14/192030 RPT#: [id number] DC DATE: STATUS: ADM IN [facility] [address] [place] [address] END OF REPORT
--- NOTE | 2019-08-14 20:41 | NUR ---
AMIODARONE BOLUS COMPLETE STARTING AMIO GTT AT THIS TIME.
--- NOTE | 2019-08-14 20:45 | NUR ---
HR DECREASED TO 100 SR AT THIS TIME.
--- NOTE | 2019-08-14 22:14 | NUR ---
PACEMAKER CONNECTED AT VVI OF 60 PER MD ORDER. PATIENT IS DOING WELL DENIES ANY NEEDS AT THIS TIME.
--- NOTE | 2019-08-14 22:15 | NUR ---
RT IN ROOM TO SET UP CPAP FOR PATIENT.
--- NOTE | 2019-08-14 22:21 | NUR ---
[id number] PATIENTS HR INCREASED TO 140'S BREIFLY THEN RETURNED TO THE 80-90'S.
--- NOTE | 2019-08-14 23:59 | NUR ---
[id number] PATIENT STILL HAVING RUNS OF ST UP TO 143 FOR BRIEF PERIODS THEN RETURN TO SR IN 80-90S
[2019-08-15] VITALS (22 sets, daily range): BP systolic 92–144; BP diastolic 44–76
--- NOTE | 2019-08-15 01:00 | NUR ---
PATIENT UP TO CHAIR, VOIDED APPROX 500ML OF MONO URINE. PATIENT WANTS TO SIT UP IN CHAIR STATES HE CANT GET A GOOD BREATH. LUNGS AUSC WHEEZING THROUGHOUT ALL LOBES. RESP CALLED FOR UPDRAFT.
--- NOTE | 2019-08-15 01:43 | NUR ---
HR INCREASED TO 140'S FOR APPROX 2-3 MINS THEN RETURNS TO SR.
--- NOTE | 2019-08-15 01:54 | NUR ---
HR UP TO 151 AT THIS TIME. PATIENT DENIES ANY DIZZINESS DOES STATE HE STILL FEELS SOB.
--- NOTE | 2019-08-15 02:32 | NUR ---
AMIODARONE GTT LEFT AT 1MG/MIN PER MD ORDER. HEART RATE IS FROM SR TO ST AT 140'S. CONTINUING GTT AT 1MG/MIN AND WILL CONTINUE TO MONITOR.
--- NOTE | 2019-08-15 03:53 | NUR ---
DECREASED AMIODARONE GTT TO 0.5 MG/MIN. HR IS SR AT 64 AND BP IS 100/58 (72).
[2019-08-15 06:43] LABS: HEMATOCRIT 33.9 % (42.0-54.0); HEMOGLOBIN 10.7 g/dL (13.5-17.5); MCHC 31.6 g/dL (31.0-37.0); MEAN PLATELET VOLUME 10.4 fL (7.4-10.4); RBC 3.45 10x6/uL (4.20-6.10); RDW 13.6 % (11.5-14.5)
[2019-08-15 06:47] LABS: MCV 98.3 fL (80.0-100.0); WBC 10.2 10x3/uL (4.8-10.8)
--- NOTE | 2019-08-15 07:00 | NUR ---
REPORT RECEVIED FROM THE OFF GOING RN. SEE ASSESSEMENT IN THE PTS FLOW SHEET. PT SITTING OOB IN HIS BEDSIDE CHAIR. PT DENIES PAIN AT THIS TIME. VSS. RIGHT IJ NOTED SEE IV GTTS IN FLOW SHEET. PT MIDSTERNAL AND SUBSTERNAL DRESSING C/D/I. TPM HOOKED UP. VVI 60 VMA 10 SENT 2.0. PT NSR ON THE MONITOR. LEG HARVEST SITE SERVICE DEVELOPER AND WELL APPROXIMATED. PT INSTUCTED TO USE IS 10X'S/H. CALL LIGHT IN REACH. WILL CONT POC.
[2019-08-15 07:27] LABS: ALBUMIN 2.6 g/dL (3.4-5.0); ALKALINE PHOSPHATASE 51 U/L (46-116); ALT (SGPT) 40 U/L (10-68); BILIRUBIN - TOTAL 0.26 mg/dL (0.2-1.3); CALC OSMOLALITY 281 mosm/kg (275-300); CALCIUM 8.1 mg/dL (8.5-10.1); CARBON DIOXIDE 27.3 mmol/L (21.0-32.0); CHLORIDE - SERUM 104 mmol/L (98-107); GLUCOSE 140 mg/dL (74-106); POTASSIUM - SERUM 4.2 mmol/L (3.5-5.1); PROTEIN - SERUM 6.1 g/dL (6.4-8.2); SODIUM 138 mmol/L (136-145); UREA NITROGEN 23 mg/dL (7-18)
[2019-08-15 07:32] LABS: CREATININE - SERUM 0.9 mg/dL (0.6-1.3); eGFR NON AFRICAN AMERICAN > 90 mL/min (90-120)
--- NOTE | 2019-08-15 08:30 | NUR ---
BREAKFAST TRAY PROVIDED FOR THE PT. WILL CONT POC.
--- NOTE | 2019-08-15 10:15 | NUR ---
DR RAMACHANDRAN AT THE PTS BEDSIDE. GIVE ONE MORE BAG OF AMIODORONE ONCE THIS BAG IS COMPLETED THEN DC. DC MIKEY AND CVL. START PIV.
--- NOTE | 2019-08-15 11:00 | NUR ---
REASSESSMENT COMPLETED. SEE FLOW SHEET. PT ASSISTED BACK INTO BED AND MIKEY DRAIN AND CVL DC'D PER ORDERS. IV STARTED BY JARRED MONACO IN THE RIGHT WRIST.
--- NOTE | 2019-08-15 12:49 | NUR ---
PT OOB EATING LUNCH WITH NO ISSUES. IV AMIODORONE COMPLETED. 1 MORE AMIO BAG ORDERED PER DR POPE ORDERS.
--- NOTE | 2019-08-15 14:14 | NUR ---
PT UP AMBULATING WITH PHYSICAL THEARPY. TOLERATING WELL. WILL CONT POC.
--- NOTE | 2019-08-15 17:45 | NUR ---
PTS FAMILY AT THE BEDSIDE WITH THE PT. VSS. CALL LIGHT IN [facility]. WILL CONT POC.
--- NOTE | 2019-08-15 19:52 | NUR ---
PT RECEIVED IN BED WITH EYES OPEN. NO S/S OF DISTRESS. VSS. ON TEMPORARY PACEMAKER. FRESH WATER GIVEN. NO OTHER NEEDS MADE KNOWN. PT ALERT AND ORIENTED. CALL LIGHT IN REACH. WILL CONTINUE TO OBSERVE.
--- NOTE | 2019-08-15 21:58 | NUR ---
PT HAS RECEIVED SCHEDULED MEDICATIONS PER MAR. TOLERATED WELL. NO NEEDS MADE KNOWN. VSS. WILL CONTINUE TO OBSERVE.
--- NOTE | 2019-08-15 23:45 | NUR ---
ASSIST GIVEN WITH MONITOR WIRES FOR PT TO GO TO BATHROOM. 650MLS OF URINE NOTED IN URINAL DARK YELLOW. SOME URINE NOTED ON FLOOR DUE TO PT MISSING URINAL FOR SHORT TIME. URINE CLEANED UP. PT UP IN CHAIR PER REQUEST. TABLE AND CALL LIGHT IN REACH. WILL CONTINUE TO OBSERVE.
[2019-08-16] VITALS (24 sets, daily range): BP systolic 99–150; BP diastolic 49–79
--- NOTE | 2019-08-16 00:25 | NUR ---
ANSWERED PTS CALL LIGHT STATES HE FEELS DRAINAGE FROM UPPER RIGHT LEG INCISION SITE. PT BLE EDEMATOUS AND THE INNER THIGH HARVEST SITE OF RIGHT UPPER LEG IS DRAINING SEROUS DRAINAGE NO REDNESS HEAT OR ODOR APPLIED GAUZE AND PLACED TOWEL UNDER LEG WILL CONTINUE TO MONITOR. PT DENIES PAIN VSS WILL CONTINUE TO MONITOR CPOC
--- NOTE | 2019-08-16 01:56 | NUR ---
PT IN CHAIR WITH EYES CLOSED AND CHEST RISING. VSS. NO S/S OF DISTRESS. CALL LIGHT IN REACH. WILL CONTINUE TO OBSERVE.
--- NOTE | 2019-08-16 03:18 | NUR ---
PT CONTINUES IN CHAIR. STATES IT IS MORE COMFORTABLE. LAYS HEAD ON BEDSIDE TABLE WITH PILLOW. NO S/S OF DISTRESS. VSS. EASILY AWOKEN TO VERBAL STIMULI. WILL CONTINUE TO OBSERVE.
--- NOTE | 2019-08-16 06:25 | NUR ---
CHG BATH GIVEN, COMPLETE LINEN CHANGE PROVIDED. PT TOLERATED WELL. PT UP TO BATHROOM PRIOR TO BATH, URINE ONLY NOTED. VSS. PT UP IN CHAIR AT THIS TIME. CALL LIGHT IN REACH. WILL CONTINUE TO OBSERVE.
[2019-08-16 07:11] LABS: HEMATOCRIT 34.1 % (42.0-54.0); MCH 31.7 pg (26.0-34.0); MCHC 32.3 g/dL (31.0-37.0); MCV 98.3 fL (80.0-100.0); RBC 3.47 10x6/uL (4.20-6.10); RDW 13.3 % (11.5-14.5)
[2019-08-16 07:14] LABS: ALBUMIN 2.5 g/dL (3.4-5.0); ALKALINE PHOSPHATASE 72 U/L (46-116); BILIRUBIN - TOTAL 0.41 mg/dL (0.2-1.3); CALC OSMOLALITY 278 mosm/kg (275-300); CALCIUM 8.2 mg/dL (8.5-10.1); CARBON DIOXIDE 27.7 mmol/L (21.0-32.0); CHLORIDE - SERUM 105 mmol/L (98-107); CREATININE - SERUM 0.9 mg/dL (0.6-1.3); GLUCOSE 120 mg/dL (74-106); PROTEIN - SERUM 6.1 g/dL (6.4-8.2); SODIUM 138 mmol/L (136-145); UREA NITROGEN 18 mg/dL (7-18); eGFR NON AFRICAN AMERICAN > 90 mL/min (90-120)
[2019-08-16 07:17] LABS: ALT (SGPT) 77 U/L (10-68)
[2019-08-16 07:24] LABS: WBC 7.3 10x3/uL (4.8-10.8)
[2019-08-16] MEDS ORDERED: AMIODARONE HCL200 MG PO (11:23)
[2019-08-16] MEDS ORDERED: LISINOPRIL5 MG PO (11:25)
[2019-08-16] MEDS ORDERED: LOPRESSOR25 MG PO (11:26)
[2019-08-16] MEDS ORDERED: ASPIRIN EC81 M1 PO (11:27)
[2019-08-16] MEDS ORDERED: COLACE100 MG PO (11:29)
[2019-08-16] MEDS ORDERED: Senokot-S Tablet PO (11:39)
--- NOTE | 2019-08-16 12:03 | NUR ---
Nutrition Follow-up: POD 4 CABG. Good appetite. No BM yet. Diet: Cardiac PO intake: 93% avg x 6 meals Wt: 341# Last BM: 08/12 Labs noted: Glu 120, Ca 8.2, Alb 2.5, AST 68, ALT 77 Meds noted: Senokot, Colace -Continue current diet as tolerated. -RD following.
[2019-08-16] MEDS ORDERED: PERCOCET 5-3251 TAB PO (15:09)
--- NOTE | 2019-08-16 19:15 | NUR ---
REPORT RECEIVED. INITIAL ASSESSMENT COMPLETE. PT SITTING UP IN CHAIR WATCHING TV. ON ROOM AIR AT THIS TIME O2 SAT 94%. PT DOES USE HOME CPAP AT NIGHT. RESP EVEN AND NONLABORED PT DENIES PAIN OR SOB AT THIS TIME. CM READING SR WITHOUT ECTOPY. STERNAL CHEST NOTED WITH DRESSING PT HAD PACER WIRES REMOVED TODAY. ABD SOFT NONTENDER. SKIN W/D BED LOW POSITION CALL LIGHT IN REACH. SEE FLOWSHEET FOR FULL ASSESSMENT.
--- NOTE | 2019-08-16 20:30 | NUR ---
FAMILY AT BEDSIDE FOR VISITATION. PTS SON UPDATE GIVEN
--- NOTE | 2019-08-16 21:45 | NUR ---
PT ASKING TO GET UP AND WALK DOWN DAIGLE. ASSISTED PT WITH LEADS, LINES. PT STEADY GAIT DOWN CVICU DAIGLE AND BACK. NO DISTRESS NO SOB STATES "I FEEL GOOD" WHEN BACK TO ROOM. PT WENT TO RESTROOM AFTER WALK
--- NOTE | 2019-08-16 22:10 | NUR ---
PT HAD BM LIGHT BROWN FORMED STOOL. PT INDEPENDENT WITH WASHING AFTER BM AND NEW GOWN COMPLETE LINEN CHANGE. PT STATES "IF OK I WOULD RATHER RECLINE IN CHAIR PT HAS RA AND STATES THE BED IS SO UNCOMFORTABLE HE THINKS HE WOULD ACTUALLY REST RECLINING IN CHAIR. DID SPEAK TO PATIENT ABOUT EDEMA AND ELEVATED FOOT OF CHAIR AND ELEVATED WITH PILLOWS. VSS WILL CONTINUE TO MONITOR. PT APPLIES HIS HOME CPAP HAS CALL LIGHT IN REACH CPOC
--- NOTE | 2019-08-16 23:00 | NUR ---
REASSESSMENT MADE PT HAS HAD BM. NO GI ISSUES NO PROBLEMS URINATING AND DENIES SOB WITH WALKING VSS CPOC
[2019-08-17] VITALS (10 sets, daily range): BP systolic 110–155; BP diastolic 60–89
--- NOTE | 2019-08-17 03:00 | NUR ---
REASSESSMENT MADE NO CHANGES PT DENIES PAIN, HOME CPAP CONTINUES. VSS CPOC IN CHAIR WITH BLE ELEVATED IN RECLINER AND PILLOWS.
--- NOTE | 2019-08-17 05:15 | NUR ---
RADIOLOGY HERE FOR PORTABLE CHEST X RAY
[2019-08-17 06:02] LABS: HEMATOCRIT 34.8 % (42.0-54.0); HEMOGLOBIN 11.3 g/dL (13.5-17.5); MCH 31.7 pg (26.0-34.0); MCHC 32.5 g/dL (31.0-37.0); MCV 97.8 fL (80.0-100.0); MEAN PLATELET VOLUME 9.6 fL (7.4-10.4); RBC 3.56 10x6/uL (4.20-6.10); RDW 13.3 % (11.5-14.5); WBC 7.3 10x3/uL (4.8-10.8)
[2019-08-17 06:27] LABS: ALBUMIN 2.6 g/dL (3.4-5.0); ALKALINE PHOSPHATASE 89 U/L (46-116); BILIRUBIN - TOTAL 0.47 mg/dL (0.2-1.3); CALC OSMOLALITY 280 mosm/kg (275-300); CALCIUM 8.2 mg/dL (8.5-10.1); CARBON DIOXIDE 28.2 mmol/L (21.0-32.0); CHLORIDE - SERUM 104 mmol/L (98-107); GLUCOSE 119 mg/dL (74-106); POTASSIUM - SERUM 4.3 mmol/L (3.5-5.1); PROTEIN - SERUM 6.5 g/dL (6.4-8.2); SODIUM 140 mmol/L (136-145); UREA NITROGEN 16 mg/dL (7-18); eGFR NON AFRICAN AMERICAN 80 mL/min (90-120)
[2019-08-17 06:29] LABS: ALT (SGPT) 103 U/L (10-68)
--- NOTE | 2019-08-17 07:36 | NUR ---
REPORT RECEIVED. SHIFT ASSESSMENT COMPLETE. PT AWAKE AND SITTING UP IN CHAIR AT BEDSIDE. DENIES NEEDS OTHER THAN TO GO HOME TODAY. PT DOES NOT HAVE RITU HOSE ON. WERE REMOVED IN THE NIGHT DUE TO SWELLING AND CUTTING IN. PT HAS BEEN KEEPING LEGS ELEVATED. INDENTATIONS NOTED TO TOPS OF FEET AND AT ANKLES. PT SAYS HAS BETTER FITTING STOCKINGS AT HOME THAT HE USES THAT DO NOT CUT IN LIKE THESE HAVE. UPPER INCISION OF RIGHT LEG NOTED TO HAVE HAD SOME RECENT DRAINAGE, HAD BEEN COVERED BY NIGHT NURSE. SITE IS NOW UNCOVERED, NO DRAINING AT THIS TIME.
--- NOTE | 2019-08-17 10:23 | NUR ---
discharge instructions provided to patient and daughter. robert ledesma placed on patient at this time.
--- NOTE | 2019-08-17 10:24 | MORECARE ---
CASE MANAGEMENT DISCHARGE SUMMARY PATIENT: AUSTIN ALFONSO UNIT: [id number] ADM DATE: 08/12/19 AGE: 63 : 57 SEX: M ROOM/BED: D[facility] AUTHOR: NINA,DOC PHYSICIAN: REFERRING PHYSICIAN: KALPESH FU MD DATE OF SERVICE: 08/17/19 Discharge Plan Patient Name: AUSTIN ALFONSO Facility: [facility]:[place] : 1955 Planned Disposition: Home Anticipated Discharge Date: Discharge Date: Expected LOS: Initial Reviewer: [email or web address] Initial Review Date: 08/14/2019 Generated: 08/17/19 11:24 am Comments DCP- Discharge Planning Updated by [email or web address]: Jovita Nunez on 08/17/19 9:[address] Patient Name: AUSTIN ALFONSO Admission Status: Urgent Accout number: [id number] Admission Date: 08-12-2019 : 1955 Admission Diagnosis: Attending: KALPESH FU Current LOS: 5 Anticipated DC Date: Planned Disposition: Home Primary Insurance: MEDICARE A & B Discharge Planning Comments: PATIENT TO DC TODAY WITH FAMILY. STATES NO NEEDS. HAS CPAP AT HOME. FAMILY TO HELP AT HOME. IMM SIGNED. CM TO FOLLOW AND ASSIST NEEDED. Director Of Dance: Jovita Nunez DCP- Discharge Planning Updated by [id number]: Citlali Barbour on 08/14/19 7:[address] Patient Name: AUSTIN ALFONSO Admission Status: Urgent Accout number: [id number] Admission Date: 08-12-2019 : 1955 Admission Diagnosis: Attending: KALPESH FU Current LOS: 2 Anticipated DC Date: Planned Disposition: Home Primary Insurance: MEDICARE A & B Discharge Planning Comments: CM met with patient at bedside after explaining CM role and obtaining verbal consent. Patient lives at home alone where he is independent with his care and plans to return there upon discharge. Patient feels this would be a safe discharge. CM discussed availability / needs of home health and medical equipment. Patient denies any discharge needs at this time. Patient states he will have his family drive him home upon discharge. Patient may need walk test if requiring 02 @ discharge. CM will continue to follow and assist as needed with discharge planning / needs. Director Of Dance: Citlali Diar DCPIA - Discharge Planning Initial Assessment Updated by [id number]: Citlali Barbour on 08/14/19 8:28 pm * Is the patient Alert and Oriented? Yes * How many steps to enter\exit or inside your home? * PCP NIKHIL * Pharmacy [facility] * Preadmission Environment Home Alone * ADLs Independent * Other Equipment WALKING STICK * List name and contact numbers for known caregivers / representatives who currently or will assist patient after discharge: YOJANA HEATH - DAUGHTER- [phone] * Verbal permission to speak to the caregivers and representatives has been obtained from the patient. Yes * Community resources currently utilized None * Additional services required to return to the preadmission environment? No * Can the patient safely return to the preadmission environment? Yes * Has this patient been hospitalized within the prior 30 days at any hospital? No Coverage Notice Reviewer: [email or web address] Rhianna Nunez Notice Issued Date-Time: 08/17/2019 10:22 Notice Type: IM Discharge Notice Notice Delivered To: Patient Relationship to Patient: Biofuels Plant Operations Engineer Name: Delivery Method: HAND - Hand Delivered Jewels Days: Prior Verbal Notification: Recipient Understood Notice: Yes Recipient Signature: Yes Med Rec Note Co-signed by Attending: Coverage Notice Comment: Last DP export: 08/14/19 7:31 p Patient Name: AUSTIN ALFONSO Page [phone] at 1024 All edits/amendments must be made on the electronic document DICTATION DATE: 08/17/19 1024 PHYS ASST: SERENA 08/17/19 1024 RPT#: [id number] DC DATE: STATUS: ADM IN [facility] [address] [place] [address] END OF REPORT
--- NOTE | 2019-08-17 15:40 | MORECARE ---
CASE MANAGEMENT DISCHARGE SUMMARY PATIENT: AUSTIN ALFONSO UNIT: [id number] ADM DATE: 08/12/19 AGE: 63 : 57 SEX: M [facility] AUTHOR: NINA,DOC PHYSICIAN: REFERRING PHYSICIAN: KALPESH FU MD DATE OF SERVICE: 08/17/19 Discharge Plan Patient Name: AUSTIN ALFONSO Facility: [facility]:[place] : 1955 Planned Disposition: Home Anticipated Discharge Date: Discharge Date: 08/17/2019 Expected LOS: Initial Reviewer: [email or web address] Initial Review Date: 08/14/2019 Generated: 08/17/19 4:40 pm Comments DCP- Discharge Planning Updated by [email or web address]: Jovita Nunez on 08/17/19 9:[address] Patient Name: AUSTIN ALFONSO Admission Status: Urgent Accout number: [id number] Admission Date: 08-12-2019 : 1955 Admission Diagnosis: Attending: KALPESH FU Current LOS: 5 Anticipated DC Date: Planned Disposition: Home Primary Insurance: MEDICARE A & B Discharge Planning Comments: PATIENT TO DC TODAY WITH FAMILY. STATES NO NEEDS. HAS CPAP AT HOME. FAMILY TO HELP AT HOME. IMM SIGNED. CM TO FOLLOW AND ASSIST NEEDED. Tread Cutter: Jovita Nunez DCP- Discharge Planning Updated by [email or web address]: Citlali Barbour on 08/14/19 7:[address] Patient Name: AUSTIN ALFONSO Admission Status: Urgent Accout number: [id number] Admission Date: 08-12-2019 : 1955 Admission Diagnosis: Attending: KALPESH FU Current LOS: 2 Anticipated DC Date: Planned Disposition: Home Primary Insurance: MEDICARE A & B Discharge Planning Comments: CM met with patient at bedside after explaining CM role and obtaining verbal consent. Patient lives at home alone where he is independent with his care and plans to return there upon discharge. Patient feels this would be a safe discharge. CM discussed availability / needs of home health and medical equipment. Patient denies any discharge needs at this time. Patient states he will have his family drive him home upon discharge. Patient may need walk test if requiring 02 @ discharge. CM will continue to follow and assist as needed with discharge planning / needs. Tread Cutter: Citlali Barbour DCPIA - Discharge Planning Initial Assessment Updated by [id number]: Citlali Barbour on 08/14/19 8:28 pm * Is the patient Alert and Oriented? Yes * How many steps to enter\exit or inside your home? * PCP NIKHIL * Pharmacy [facility] * Preadmission Environment Home Alone * ADLs Independent * Other Equipment WALKING STICK * List name and contact numbers for known caregivers / representatives who currently or will assist patient after discharge: YOJANA HEATH - DAUGHTER- [phone] * Verbal permission to speak to the caregivers and representatives has been obtained from the patient. Yes * Community resources currently utilized None * Additional services required to return to the preadmission environment? No * Can the patient safely return to the preadmission environment? Yes * Has this patient been hospitalized within the prior 30 days at any hospital? No Coverage Notice Reviewer: [email or web address] Rhianna Nunez Notice Issued Date-Time: 08/17/2019 10:22 Notice Type: IM Discharge Notice Notice Delivered To: Patient Relationship to Patient: Laundry Washer Name: Delivery Method: HAND - Hand Delivered Jewels Days: Prior Verbal Notification: Recipient Understood Notice: Yes Recipient Signature: Yes Med Rec Note Co-signed by Attending: Coverage Notice Comment: Last DP export: 08/17/19 9:24 a Patient Name: AUSTIN ALFONSO Page [id number] at 1540 All edits/amendments must be made on the electronic document DICTATION DATE: 08/17/191538 GEOLOGY TECHNICIAN: SERENA 08/17/191538 RPT#: [id number] DC DATE:08/17/19 STATUS: DIS IN [facility] [address] [place] [address] END OF REPORT
== END 2019-08-17 10:55 | disposition home or self-care (01) | DRG 236 ==
LOC: D.SDCHOLD 08-12 05:05 → D.CVICU 08-12 05:05 → D.SDCHOLD 08-12 07:30 → D.CVICU 08-12 13:14 → D.SDCHOLD 08-12 14:00 → D.CVICU 08-17 10:55
PROVIDERS: ADMIT Thoracic Surgery (Cardiothoracic Vascular Surgery); ATTEND Thoracic Surgery (Cardiothoracic Vascular Surgery)
PROC: 021209W Bypass Coronary Artery, Three Arteries from Aorta with Autologous Venous Tissue, Open Approach (ICD-10-PCS; 2019-08-12)
PROC: 06BP4ZZ Excision of Right Saphenous Vein, Percutaneous Endoscopic Approach (ICD-10-PCS; 2019-08-12)
PROC: B245ZZ4 Ultrasonography of Left Heart, Transesophageal (ICD-10-PCS; 2019-08-12)
PROC: 5A1221Z Performance of Cardiac Output, Continuous (ICD-10-PCS; 2019-08-12)
PROC: 02100Z9 Bypass Coronary Artery, One Artery from Left Internal Mammary, Open Approach (ICD-10-PCS; principal; 2019-08-12 07:30)
DX: I25.119 Atherosclerotic heart disease of native coronary artery with unspecified angina pectoris (principal); J98.11 Atelectasis; G47.33 Obstructive sleep apnea (adult) (pediatric); G25.81 Restless legs syndrome; I10 Essential (primary) hypertension; E78.5 Hyperlipidemia, unspecified; G62.9 Polyneuropathy, unspecified; K21.9 Gastro-esophageal reflux disease without esophagitis; G89.29 Other chronic pain; R53.81 Other malaise; D64.9 Anemia, unspecified; I48.0 Paroxysmal atrial fibrillation; D72.829 Elevated white blood cell count, unspecified

== ENCOUNTER → 2019-08-21 14:44 | Outpatient (CLI) | payer MEDICARE, OTHER ==
[2019-08-14 13:59] VITALS: BMI 49.9
[~2019-08-21 14:44] MED LIST changes: +AMIODARONE HCL200 MG PO; +ASPIRIN EC81 M1 PO; +COLACE100 MG PO; +LISINOPRIL5 MG PO; +LOPRESSOR25 MG PO; +PERCOCET 5-3251 TAB PO; +Senokot-S Tablet PO
== END | disposition home or self-care (01) ==
LOC: D.RAD 14:44
PROVIDERS: ATTEND Thoracic Surgery (Cardiothoracic Vascular Surgery)
DX: J90 Pleural effusion, not elsewhere classified (principal)

== ENCOUNTER 2021-03-26 10:51 | Inpatient (IN) | payer MEDICARE, OTHER ==
[~2021-03-26] VITALS: Ht 175.3 cm; Wt 156.4 kg
[2021-03-26] MEDS ORDERED: GLUCOSAMINE HC500 MG PO (11:05)
[2021-03-26] MEDS ORDERED: LIPITOR40 MG PO (11:05)
[2021-03-26] MEDS ORDERED: FUROSEMIDE20 MG (11:07)
[2021-03-26 11:42] LABS: BASOPHILS 1.1 % (0-2); EOSINOPHILS 1.4 % (0-7); HEMATOCRIT 43.8 % (42.0-54.0); HEMOGLOBIN 14.6 g/dL (13.5-17.5); LYMPHOCYTES 24.5 % (15-50); MCH 30.8 pg (26.0-34.0); MCHC 33.3 g/dL (31.0-37.0); MCV 92.5 fL (80.0-100.0); MONOCYTES 6.8 % (2-11); NEUTROPHILS 66.2 % (40-80); PLATELET COUNT 190 10x3/uL (130-400); RBC 4.74 10x6/uL (4.20-6.10); RDW 13.7 % (11.5-14.5); WBC 7.3 10x3/uL (4.8-10.8)
[2021-03-26 11:53] LABS: CALC OSMOLALITY 279 mosm/kg (275-300); CALCIUM 8.7 mg/dL (8.5-10.1); CARBON DIOXIDE 25.9 mmol/L (21.0-32.0); CHLORIDE - SERUM 105 mmol/L (98-107); GLUCOSE 103 mg/dL (74-106); POTASSIUM - SERUM 4.5 mmol/L (3.5-5.1); SODIUM 138 mmol/L (136-145); UREA NITROGEN 23 mg/dL (7-18); eGFR NON AFRICAN AMERICAN 80 mL/min (90-120)
[2021-03-26 11:56] LABS: APTT 24.8 SECONDS (22.8-39.4); INR 1.1 (0.85-1.17); PROTIME 13.1 SECONDS (11.6-15.0)
[2021-03-26 12:11] LABS: ALBUMIN 3.6 g/dL (3.4-5.0); ALKALINE PHOSPHATASE 83 U/L (30-120); ALT (SGPT) 28 U/L (10-68); BILIRUBIN - TOTAL 0.22 mg/dL (0.2-1.3); CKMB 1.3 U/L (0.0-3.6); CREATINE KINASE 106 UL (21-232); MAGNESIUM - SERUM 1.8 mg/dL (1.8-2.4); PROTEIN - SERUM 7.6 g/dL (6.4-8.2); THYROID STIMULATING HORMONE 1.99 uIU/mL (0.36-3.74); TROPONIN-I < 0.017 ng/mL (0.000-0.060)
--- NOTE | 2021-03-26 16:59 | NUR ---
REPORT CALLED TO AMINA CRISTOBAL FOR TRANSFER TO ROOM 2208
[2021-03-26 17:32] VITALS: BP 149/73; Ht 175.3 cm; Wt 156.4 kg
[2021-03-26 20:26] LABS: ERYTHROCYTE SEDIMENTATION RATE 16 mm/hr (0-20)
[2021-03-26 21:05] VITALS: BP 131/61
[2021-03-27 00:44] VITALS: BP 106/43
[2021-03-27 05:56] VITALS: BP 125/77
[2021-03-27 06:29] LABS: BASOPHILS 0.9 % (0-2); EOSINOPHILS 1.1 % (0-7); HEMATOCRIT 44.3 % (42.0-54.0); HEMOGLOBIN 14.9 g/dL (13.5-17.5); LYMPHOCYTES 20.4 % (15-50); MCH 30.9 pg (26.0-34.0); MCHC 33.5 g/dL (31.0-37.0); MCV 92.1 fL (80.0-100.0); MEAN PLATELET VOLUME 8.4 fL (7.4-10.4); MONOCYTES 6.2 % (2-11); NEUTROPHILS 71.4 % (40-80); PLATELET COUNT 194 10x3/uL (130-400); RBC 4.81 10x6/uL (4.20-6.10); RDW 13.7 % (11.5-14.5); WBC 8.3 10x3/uL (4.8-10.8)
[2021-03-27 07:10] LABS: CALC OSMOLALITY 278 mosm/kg (275-300); CALCIUM 8.7 mg/dL (8.5-10.1); CARBON DIOXIDE 24.6 mmol/L (21.0-32.0); CHLORIDE - SERUM 104 mmol/L (98-107); CHOL - HDL RATIO 5.5 ratio (2.3-4.9); CHOLESTEROL, TOTAL 159 mg/dL (0-200); CREATININE - SERUM 0.9 mg/dL (0.6-1.3); GLUCOSE 104 mg/dL (74-106); HDL CHOLESTEROL 29 mg/dL (32-96); LDL CHOLESTEROL 84 mg/dL (0-100); LDL-HDL RATIO 2.9 ratio (1.5-3.5); MAGNESIUM - SERUM 1.7 mg/dL (1.8-2.4); PHOSPHOROUS 2.7 mg/dL (2.5-4.9); POTASSIUM - SERUM 4.3 mmol/L (3.5-5.1); SODIUM 139 mmol/L (136-145); T4 THYROXIN - FREE 0.95 ng/dL (0.76-1.46); THYROID STIMULATING HORMONE 2.35 uIU/mL (0.36-3.74); TRIGLYCERIDE 231 mg/dL (30-200); eGFR NON AFRICAN AMERICAN 90 mL/min (90-120)
[2021-03-27 07:11] LABS: UREA NITROGEN 16 mg/dL (7-18)
[2021-03-27 09:34] VITALS: BP 128/59
--- NOTE | 2021-03-27 10:19 | NUR ---
PT SITTING UP ON SIDE OF BED WITH FAMILY AT BEDSIDE. RESP EVENA DN UNLABORED. SALINE LOC TO RIGHT HAND, SITE WITHOUT REDNESS OR EDEMA. DENIES FURTHER NEEDS AT THIS TIME. CL WITHIN REACH. ENCOURAGED TO CALL WITH NEEDS. CONTINUE POC
[2021-03-27 14:53] VITALS: BP 151/88
[2021-03-27 17:30] VITALS: BP 109/73
[2021-03-27 20:00] VITALS: BP 150/69
[2021-03-28 08:08] LABS: C-REACTIVE PROTEIN (CARDIAC) 5.21 mg/L (0.00-3.00)
[2021-03-28 08:50] VITALS: BP 132/60
--- NOTE | 2021-03-28 09:26 | NUR ---
PT SITTING ON SIDE OF BED EATING BREAKFAST. AM MEDS GIVEN. IV CDI, RR EVEN NONLABORED. ALL NEEDS MET AT THIS TIME. CLWR.
[2021-03-28 12:56] VITALS: BP 141/67
[2021-03-28 16:38] VITALS: BP 155/69
[2021-03-29 04:00] VITALS: BP 132/88
[2021-03-29] MEDS ORDERED: PLAVIX75 MG PO (07:46)
--- NOTE | 2021-03-29 08:43 | NUR ---
AAOX4 UPON ENTERING. ADMINISTERED MEDICATION, NO DIFFICULTIES. UP RIGHT ON BEDSIDE EATING BREAKFAST. DENIES ANY NEEDS AT THIS TIME. WILL CONTINUE POC. ASSESSMENT PERFORMED
--- NOTE | 2021-03-29 09:12 | MORECARE ---
CASE MANAGEMENT DISCHARGE SUMMARY PATIENT: AUSTIN ALFONSO UNIT: [id number] ADM DATE: 03/28/21 AGE: 65 : 57 SEX: M ROOM/BED: D.2207 AUTHOR: NINA,DOC PHYSICIAN: REFERRING PHYSICIAN: STEVE ESCALONA MD DATE OF SERVICE: 03/29/21 Case Management Discharge Planning Summary DCP REVIEW SUMMARY ANTICIPATED D/C DATE: EXPECTED LOS : CASE STATUS: DCP Initiated INITIAL REVIEW: 03/26/2021 INITIAL REVIEWER: Jovita Nunez FINAL DISCHARGE DISPOSITION: : FINAL REVIEWER: FINAL REVIEW DATE: DCP Focus Questions & Answers DCP Screen QUESTION: ANSWER High Risk Factors: : Hosp related to CHF, COPD, DM, End Stage Ds, CVA, CA DCP Evaluation QUESTION: ANSWER Patient's ability to cope with chronic illness : d. No chronic illness Would patient like to participate in any Care Coordination programs (if applicable): : Not applicable Mental health screen: : No mental health history DCP Re-evaluation QUESTION: ANSWER Would patient like to participate in any Care Coordination programs (if applicable): : Not applicable PATIENT: AUSTIN LAFONSO ENCOUNTER: [id number] MEDICAL RECORD#: [id number] ADMISSION DATE: 03/28/2021 DISCHARGE DATE: ATTENDING MD: STEVE JEONG : AGE: 65 MARITAL STATUS: W DC PLAN ID: [id number] FACILITY: [facility] PRINTED ON: 03/29/21 9:12 CT All edits/amendments must be made on the electronic document DICTATION DATE: 03/29/21911 CANDY SPREADER HELPER: DM 03/29/21911 RPT#: [id number] DC DATE: STATUS: ADM IN [facility] [address] [place] [address] END OF REPORT
--- NOTE | 2021-03-29 09:22 | MORECARE ---
CASE MANAGEMENT DISCHARGE SUMMARY PATIENT: AUSTIN ALFONSO UNIT: [id number] ADM DATE: 03/28/21 AGE: 65 : 57 SEX: M ROOM/BED: D.2207 AUTHOR: NINA,DOC PHYSICIAN: REFERRING PHYSICIAN: STEVE ESCALONA MD DATE OF SERVICE: 03/29/21 Case Management Discharge Planning Summary COMMENTS ENTERED DATE: 03/29/21 9:11 CT COMMENT TYPE: Discharge Planning REVIEWER: Jovita Nunez CM met with patient at bedside after obtaining verbal consent. CM discussed availability / needs of home health, REHAB and medical equipment. Patient states does not need equipment, says he has a cane and walker at home if he needs it. He would like therapy at home, nap[place]on signed for [address] Orders faxed to [address] Patient's family is here to pick him up. Anticipate dc to home soon. DCP REVIEW SUMMARY ANTICIPATED D/C DATE: EXPECTED LOS : CASE STATUS: DCP Initiated INITIAL REVIEW: 03/26/2021 INITIAL REVIEWER: Jovita Nunez FINAL DISCHARGE DISPOSITION: : FINAL REVIEWER: FINAL REVIEW DATE: DCP Focus Questions & Answers DCP Screen QUESTION: ANSWER High Risk Factors: : Hosp related to CHF, COPD, DM, End Stage Ds, CVA, CA DCP Evaluation QUESTION: ANSWER Patient's ability to cope with chronic illness : d. No chronic illness Would patient like to participate in any Care Coordination programs (if applicable): : Not applicable Mental health screen: : No mental health history DCP Re-evaluation QUESTION: ANSWER Would patient like to participate in any Care Coordination programs (if applicable): : Not applicable PATIENT: AUSTIN ALFONSO ENCOUNTER: [id number] MEDICAL RECORD#: [id number] ADMISSION DATE: 03/28/2021 DISCHARGE DATE: ATTENDING MD: STEVE JEONG : AGE: 65 MARITAL STATUS: W DC PLAN ID: [id number] FACILITY: [facility] PRINTED ON: 03/29/21 9:22 CT All edits/amendments must be made on the electronic document DICTATION DATE: 03/29/21921 FISH TRAPPER: SERENA 03/29/21921 RPT#: [id number] DC DATE: STATUS: ADM IN [facility] [address] [place] [address] END OF REPORT
[2021-03-29 09:23] VITALS: BP 139/76
--- NOTE | 2021-03-29 10:50 | NUR ---
SIGNED ALL NECESSARY DISCHARGE PAPERWORK. REMOVED IV FROM RIGHT HAND, COVERED WITH GAUZE AND TAPE. TOLERATED WELL. DRESSED AND AMBULATED TO WHEEL CHAIR. ACCOMPANIED OUT BY STAFF AND RIDING HOME WITH DAUGHTER. DENIES FURTHER NEEDS FROM HOSPITAL/STAFF AT THIS TME.
--- NOTE | 2021-03-29 11:00 | MORECARE ---
CASE MANAGEMENT DISCHARGE SUMMARY PATIENT: AUSTIN ALFONSO UNIT: [id number] ADM DATE: 03/28/21 AGE: 65 : 57 SEX: M ROOM/BED: D.2207 AUTHOR: NINA,DOC PHYSICIAN: REFERRING PHYSICIAN: STEVE ESCALONA MD DATE OF SERVICE: 03/29/21 Case Management Discharge Planning Summary COMMENTS ENTERED DATE: 03/29/21 9:11 CT COMMENT TYPE: Discharge Planning REVIEWER: Jovita Nunez CM met with patient at bedside after obtaining verbal consent. CM discussed availability / needs of home health, REHAB and medical equipment. Patient states does not need equipment, says he has a cane and walker at home if he needs it. He would like therapy at home, nap[place]on signed for [address] Orders faxed to [address] Patient's family is here to pick him up. Anticipate dc to home soon. DCP REVIEW SUMMARY ANTICIPATED D/C DATE: EXPECTED LOS : CASE STATUS: DCP Initiated INITIAL REVIEW: 03/26/2021 INITIAL REVIEWER: Jovita Nunez FINAL DISCHARGE DISPOSITION: : FINAL REVIEWER: FINAL REVIEW DATE: DCP Focus Questions & Answers DCP Screen QUESTION: ANSWER High Risk Factors: : Hosp related to CHF, COPD, DM, End Stage Ds, CVA, CA DCP Evaluation QUESTION: ANSWER Patient's ability to cope with chronic illness : d. No chronic illness Would patient like to participate in any Care Coordination programs (if applicable): : Not applicable Mental health screen: : No mental health history DCP Re-evaluation QUESTION: ANSWER Would patient like to participate in any Care Coordination programs (if applicable): : Not applicable PATIENT: AUSTIN ALFONSO ENCOUNTER: [id number] MEDICAL RECORD#: [id number] ADMISSION DATE: 03/28/2021 DISCHARGE DATE: 03/29/2021 ATTENDING MD: STEVE JEONG : AGE: 65 MARITAL STATUS: W DC PLAN ID: [id number] FACILITY: [facility] PRINTED ON: 03/29/21 11:00 CT All edits/amendments must be made on the electronic document DICTATION DATE: 03/29/21 1100 CUSTOMER EQUIPMENT ENGINEER: SERENA 03/29/21 1100 RPT#: [id number] DC DATE:03/29/21 STATUS: DIS IN [facility] [address] [place] [address] END OF REPORT
--- NOTE | 2021-03-29 14:46 | MORECARE ---
CASE MANAGEMENT DISCHARGE SUMMARY PATIENT: AUSTIN ALFONSO UNIT: [id number] ADM DATE: 03/28/21 AGE: 65 : 57 SEX: M ROOM/BED: D.2207 AUTHOR: NINA,DOC PHYSICIAN: REFERRING PHYSICIAN: STEVE ESCALONA MD DATE OF SERVICE: 03/29/21 Case Management Discharge Planning Summary COMMENTS ENTERED DATE: 03/29/21 9:11 CT COMMENT TYPE: Discharge Planning REVIEWER: Jovita Nunez CM met with patient at bedside after obtaining verbal consent. CM discussed availability / needs of home health, REHAB and medical equipment. Patient states does not need equipment, says he has a cane and walker at home if he needs it. He would like therapy at home, nap[place]on signed for [address] Orders faxed to [address] Patient's family is here to pick him up. Anticipate dc to home soon. DCP REVIEW SUMMARY ANTICIPATED D/C DATE: EXPECTED LOS : CASE STATUS: DCP Initiated INITIAL REVIEW: 03/26/2021 INITIAL REVIEWER: Jovita Nunez FINAL DISCHARGE DISPOSITION: : FINAL REVIEWER: FINAL REVIEW DATE: DCP Focus Questions & Answers DCP Screen QUESTION: ANSWER High Risk Factors: : Hosp related to CHF, COPD, DM, End Stage Ds, CVA, CA DCP Evaluation QUESTION: ANSWER Patient's ability to cope with chronic illness : d. No chronic illness Would patient like to participate in any Care Coordination programs (if applicable): : Not applicable Mental health screen: : No mental health history DCP Re-evaluation QUESTION: ANSWER Would patient like to participate in any Care Coordination programs (if applicable): : Not applicable PATIENT: AUSTIN ALFONSO ENCOUNTER: [id number] MEDICAL RECORD#: [id number] ADMISSION DATE: 03/28/2021 DISCHARGE DATE: 03/29/2021 ATTENDING MD: STEVE JEONG : AGE: 65 MARITAL STATUS: W DC PLAN ID: [id number] FACILITY: [facility] PRINTED ON: 03/29/21 14:45 CT All edits/amendments must be made on the electronic document DICTATION DATE: 03/29/21 144 MATERIALS MANAGEMENT MANAGER: SERENA 03/29/21 1445 RPT#: [id number] DC DATE:03/29/21 STATUS: DIS IN [facility] [address] [place] [address] END OF REPORT
--- NOTE | 2021-04-01 10:33 | MORECARE ---
CASE MANAGEMENT DISCHARGE SUMMARY PATIENT: AUSTIN ALFONSO UNIT: [id number] ADM DATE: 03/28/21 AGE: 65 : 57 SEX: M ROOM/BED: D.2207 AUTHOR: NINA,DOC PHYSICIAN: REFERRING PHYSICIAN: STEVE ESCALONA MD DATE OF SERVICE: 04/01/21 Case Management Discharge Planning Summary COMMENTS ENTERED DATE: 03/29/21 9:11 CT COMMENT TYPE: Discharge Planning REVIEWER: Jovita Nunez CM met with patient at bedside after obtaining verbal consent. CM discussed availability / needs of home health, REHAB and medical equipment. Patient states does not need equipment, says he has a cane and walker at home if he needs it. He would like therapy at home, [place] signed for [address] Orders faxed to [address] Patient's family is here to pick him up. Anticipate dc to home soon. DCP REVIEW SUMMARY ANTICIPATED D/C DATE: EXPECTED LOS : CASE STATUS: DCP Initiated INITIAL REVIEW: 03/26/2021 INITIAL REVIEWER: Jovita Nunez FINAL DISCHARGE DISPOSITION: : FINAL REVIEWER: FINAL REVIEW DATE: DCP Focus Questions & Answers DCP Screen QUESTION: ANSWER High Risk Factors: : Hosp related to CHF, COPD, DM, End Stage Ds, CVA, CA DCP Evaluation QUESTION: ANSWER Patient's ability to cope with chronic illness : d. No chronic illness Would patient like to participate in any Care Coordination programs (if applicable): : Not applicable Mental health screen: : No mental health history DCP Re-evaluation QUESTION: ANSWER Would patient like to participate in any Care Coordination programs (if applicable): : Not applicable PATIENT: AUSTIN ALFONSO ENCOUNTER: [id number] MEDICAL RECORD#: [id number] ADMISSION DATE: 03/28/2021 DISCHARGE DATE: 03/29/2021 ATTENDING MD: STEVE JEONG : AGE: 65 MARITAL STATUS: W DC PLAN ID: [id number] FACILITY: [facility] PRINTED ON: 04/01/21 10:33 CT All edits/amendments must be made on the electronic document DICTATION DATE: 04/01/21 1033 COKE WHEELER: SERENA 04/01/21 1033 RPT#: [id number] DC DATE:03/29/21 STATUS: DIS IN [facility] [address] [place] [place] [address] END OF REPORT
== END 2021-03-29 10:52 | disposition home health service (06) | DRG 66 ==
LOC: D.ER 10:51 → OBSVTIME 13:36 → D.MS 13:36 → D.EDHOLD 13:36 → D.MS 14:36
PROVIDERS: Family Medicine; ADMIT Legal Medicine; ATTEND Legal Medicine
DX: I63.9 Cerebral infarction, unspecified (principal); I25.10 Atherosclerotic heart disease of native coronary artery without angina pectoris; I10 Essential (primary) hypertension; E78.5 Hyperlipidemia, unspecified; E66.9 Obesity, unspecified; I48.0 Paroxysmal atrial fibrillation; G83.24 Monoplegia of upper limb affecting left nondominant side; R26.9 Unspecified abnormalities of gait and mobility; G61.9 Inflammatory polyneuropathy, unspecified; M06.9 Rheumatoid arthritis, unspecified; R60.0 Localized edema